=== PATIENT | male | born 1985 | race Caucasian/White ===

== ENCOUNTER 2016-04-17 08:38 | Outpatient (CLI) | payer BC | END 2016-04-17 19:34 | disposition home or self-care (01) | LOC: SUS 08:38 | PROVIDERS: ATTEND Specialist | DX: K29.70 Gastritis, unspecified, without bleeding (principal) | CPT/HCPCS: 76700-TC ==

== ENCOUNTER 2017-04-16 10:09 | Outpatient (CLI) | payer BC | END 2017-04-16 19:01 | disposition home or self-care (01) | LOC: SMA 10:09 | PROVIDERS: ATTEND Family Medicine | DX: N63.10 Unspecified lump in the right breast, unspecified quadrant (principal); N62 Hypertrophy of breast | CPT/HCPCS: 76642; 77065 ==

== ENCOUNTER 2018-03-04 09:33 | Outpatient (CLI) | payer BC | END 2018-03-04 19:22 | disposition home or self-care (01) | LOC: SMA 09:33 | PROVIDERS: ATTEND Physician Assistant Medical | DX: R22.2 Localized swelling, mass and lump, trunk (principal) | CPT/HCPCS: 76642; 77065 ==